=== PATIENT | male | born 1985 ===

== ENCOUNTER 2022-11-15 21:53 | Emergency (ER) | payer BC, SELFPAY ==
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
[2022-11-15 22:51] VITALS: BP 131/77; TEMP 98.3; O2SAT 97
== END 2022-11-15 22:25 | disposition home or self-care (01) ==
LOC: ER 21:53
DX: Z71.1 Person with feared health complaint in whom no diagnosis is made (principal)